=== PATIENT | male | born 1975 ===

== ENCOUNTER 2018-09-08 07:17 | Day surgery (SDC) | payer OTHER ==
--- NOTE | 2018-09-07 21:45 | Pre-Procedure Note/Attestation ---
Pre-Procedure Note/Attestation Complete Prior to Procedure Planned Procedure: not applicable Procedure Narrative: 1. Septoplasty 2. Submucous resection right inferior turbinate 3. Submucous resection left inferior turbinate 4. Repair nasal deformity Indications for Procedure Pre-Operative Diagnosis: 1. Nasal septal deviation 2. Hypertrophied right inferior turbinate 3. Hypertrophied left inferior turbinate. 4. Nasal deformity Attestation I attest that I discussed the nature of the procedure; its benefits; risks and complications; and alternatives (and the risks and benefits of such alternatives ), prior to the procedure, with the patient (or the patient's legal arborist representative). I attest that, if there was a reasonable possibility of needing a blood transfusion, the patient (or the patient's legal arborist representative) was given the [facility] standardized written summary, pursuant to the Dmitry Lookingglass Blood Safety Act ([place] Health and Safety Code # 1645, as amended). I attest that I re-evaluated the patient just prior to the surgery and that there has been no change in the patient's H&P. No need for labs, CXR or EKG in otherwise healthy 43 year old male. Jono Sanders MD Sep 07, 2018 21:45
--- NOTE | 2018-09-07 21:46 | Brief Operative Note ---
Immediate Post Operative Note Operative Note Chief Complaint: nasal airway obstruction Pre-op Diagnosis: 1. Nasal septal deviation 2. Hypertrophied right inferior turbinate 3. Hypertrophied left inferior turbinate. 4. Nasal deformity Procedure: 1. Septoplasty 2. Submucous resection right inferior turbinate 3. Submucous resection left inferior turbinate 4. Repair nasal deformity Post-op Diagnosis: same as pre-op Surgeon: Jono Sanders MD Oven Worker: none Additional Surgeons: none Anesthesiologist: Dr. Hull Anesthesia: general Specimen: none Complications: none Condition: stable Fluids: D5LR Estimated Blood Loss: volume - 75 cc Drains: none Packing: Stamberger nasal gel Implant(s) used?: No Jono Sanders MD Sep 07, 2018 21:46
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
--- NOTE | 2018-09-07 22:01 | Discharge Instructions ---
Discharge Instructions Discharge Instructions Follow up with: next week-pt has appt. already Diet: regular, renal (80g protein, 2GM) Resume Normal Activity?: No Activity: light activity Pneumonia Vaccine: pt refused vaccine Influenza Vaccine (Mar to Aug): pt refused vaccine Follow Up Orders Pt has printed post op instructions discussed with him at his pre op visit. He also has his post op medications already-[place] and Amox. Return to Work/School on: Sep 21, 2018 Special Instructions Ice to nose x 48 hours. For Surgical Patients Dressing Care: may change May shower: No For Congestive Heart Failure Reminder Report to your physician any weight gain of 5 pounds or more in one week. Jono Sanders MD Sep 07, 2018 22:01
[~2018-09-08] VITALS: Ht 175.3 cm; Wt 81.6 kg
[2018-09-08] VITALS (10 sets, daily range): BP systolic 118–143; BP diastolic 72–90
[2018-09-08] MEDS ORDERED: NKM (08:03)
[2018-09-08] MEDS ORDERED: fentaNYL 100 mcg/2 mL IV ONE (08:04)
[2018-09-08] MEDS ORDERED: Midazolam 2mg/2ml Inj ONE (08:04)
[2018-09-08] MEDS ORDERED: Lidocaine 1% MPF 10mg/ml 5ml ONE (08:07)
[2018-09-08] MEDS ORDERED: Propofol 200mg/20ml IV ONE ×2 (08:07→08:57)
[2018-09-08] MEDS ORDERED: Bupivacaine w/Epi 0.5% 30ml Vial INJ ONE (08:12)
[2018-09-08] MEDS ORDERED: Lidocaine 1% 10mg/ml/Epi 0.005mg/ml 30ml vial INJ ONE (08:12)
[2018-09-08] MEDS ORDERED: Cocaine HCl 4% 4ml vial TOPIC ONE (08:12)
[2018-09-08] MEDS ORDERED: NS Irrig 1000ml ONE (09:00)
[2018-09-08] MEDS ORDERED: LR 1000ml ONE (09:00)
[2018-09-08] MEDS ORDERED: Sterile Water Irrig 1000ml IRRIG ONE (09:00)
[2018-09-08] MEDS ORDERED: LR 1000ml 1,000 ML IVLG SCH (09:19)
--- NOTE | 2018-09-08 09:19 | Anethesia Preoperative Eval ---
Anesthesia Pre-op PMH/ROS General Date of Evaluation: Sep 08, 2018 Time of Evaluation: 08:50 Anesthesiologist: Pialr ASA Score: ASA 2 Mallampati Score Class I : Soft palate, uvula, fauces, pillars visible Class II: Soft palate, uvula, fauces visible Class III: Soft palate, base of uvula visible Class IV: Only hard plate visible Mallampati Classification: Class II Surgeon: Tommy Diagnosis: Nasal septum deviation Surgical Procedure: Septoplasty Anesthesia History: none Family History: no anesthesia problems Allergies: Coded Allergies: No Known Allergies (Unverified , 09/08/18) Medications: see eMAR Patient NPO?: Yes Past Medical History Cardiovascular: Denies: HTN, CAD, CT, valve dz, arrhythmia, other Pulmonary: Denies: asthma, COPD, [place], other Gastrointestinal/Genitourinary: Reports: GERD - mild; Denies: CRI, ESRD, other Neurologic/Psychiatric: Denies: dementia, CVA, depression/anxiety, TIA, other Endocrine: Denies: DM, hypothyroidism, steroids, other HEENT: Denies: cataract (L), cataract (R), glaucoma, [place] (L), [place] (R), other Hematology/Immune: Denies: anemia, DVT, bleeding disorder, other Musculoskeletal/Integumentary: Denies: OA, RA, DJD, DDD, edema, other Other: other - overweight PMH Narrative: as above PSxH Narrative: None Anesthesia Pre-op Phys. Exam Physician Exam Last Vital Signs Date Time Temp Pulse Resp B/P (MAP) Pulse Ox O2 Delivery O2 Flow Rate FiO2 09/08/18 08:10 Room Air 09/08/18 08:03 97.7 70 18 118/72 97 Constitutional: NAD Neurologic: CN 2-12 intact Cardiovascular: RRR, no M/R/G Respiratory: CTA Gastrointestinal: S/NT/ND Airway Exam Mallampati Score: Class II MO: full Neck: flexible ROM: full Teeth: intact Dentures: no upper, no lower Anesthesia Pre-op A/P Labs see chart Studies Pre-op Studies: EKG - NSR Risk Assessment & Plan Assessment: ASA 2 Plan: GA with LMA Status Change Before Surgery: No Pre-Antibiotics Drug: Ancef 1gr Given Within 1 Hr of Incision: Yes Time Given: 09:08 Mahendra Quezada MD Sep 08, 2018 09:19
[2018-09-08] MEDS ORDERED: DiphenhydrAMINE 50mg/ml Inj IVP PRN (09:30)
[2018-09-08] MEDS ORDERED: Metoclopramide 10mg/2ml Inj IVP PRN ×2 (09:30→10:30)
[2018-09-08] MEDS ORDERED: Meperidine 50mg/ml Inj(FOR RIGORS ONLY) IV PRN (09:30)
[2018-09-08] MEDS ORDERED: Ketorolac 30mg Inj ONE (09:50)
--- NOTE | 2018-09-08 10:15 | Immediate Post-Op Evaluation ---
Immediate Post-Op Evalulation Immediate Post-Op Evalulation Procedure: Septoplasty turbinate ablasion Date of Evaluation: Sep 08, 2018 Time of Evaluation: 10:14 IV Fluids: 800 Blood Products: none Estimated Blood Loss: 80 Urinary Output: none Blood Pressure Systolic: 143 Blood Pressure Diastolic: 84 Pulse Rate: 92 Respiratory Rate: 22 O2 Sat by Pulse Oximetry: 98 Temperature (Fahrenheit): 97.6 Pain Score (1-10): 2 Nausea: No Vomiting: No Complications none Patient Status: reacts, patent, none Hydration Status: adequate Mahendra Quezada MD Sep 08, 2018 10:15
[2018-09-08] MEDS ORDERED: HYDROcodone/Acetamin 5/325 tab ORAL PRN (10:30)
[2018-09-08] MEDS ORDERED: HYDROmorphone 1mg/ml Carpuject SUBQ PRN (10:30)
--- NOTE | 2018-09-08 11:08 | 48 Hour Post Anesthesia Eval ---
Post Anesthesia Evaluation Procedure: Septoplasty turbinate ablasion Date of Evaluation: Sep 08, 2018 Time of Evaluation: 11:07 Blood Pressure Systolic: 139 0: 76 Pulse Rate: 72 Respiratory Rate: 20 Temperature (Fahrenheit): 97.6 O2 Sat by Pulse Oximetry: 98 Airway: patent Nausea: No Vomiting: No Pain Intensity: 2 Hydration Status: adequate Cardiopulmonary Status: stable Mental Status/LOC: patient returned to baseline Follow-up Care/Observations: n/a Post-Anesthesia Complications: none Follow-up care needed: ready to discharge Mahendra Quezada MD Sep 08, 2018 11:08
--- NOTE | 2018-09-08 20:00 | Operative Note - Dictated ---
DATE OF OPERATION: 09/08/2018 SURGEON: Jono Sanders M.D. COST ACCOUNTING CLERK: None. ANESTHESIOLOGIST: Dr. Hull. ANESTHESIA: LMA general anesthesia as well as 4 mL of 4% topical cocaine on four nasal pledgets accounted for at the end of the case. A 20 mL of 1% lidocaine with 1:100,000 epinephrine and Marcaine 0.5% with 1:200,000 epinephrine injected within the nose. INDICATION FOR SURGERY: Nasal airway obstruction secondary to septal deviation to the left, hypertrophied right and left inferior turbinates and nasal deformity. PREOPERATIVE DIAGNOSIS: Nasal airway obstruction secondary to septal deviation to the left, hypertrophied right and left inferior turbinates and nasal deformity. POSTOPERATIVE DIAGNOSIS: Nasal airway obstruction secondary to septal deviation to the left, hypertrophied right and left inferior turbinates and nasal deformity. FINDINGS: Nasal airway obstruction secondary to septal deviation to the left, hypertrophied right and left inferior turbinates and nasal deformity. PROCEDURE: 1. Septoplasty. 2. Submucous resection, right inferior turbinate. 3. Submucous resection, left inferior turbinate. 4. Repair of nasal deformity. TECHNIQUE: The patient was prepped and draped in the usual manner. A time-out was performed and all agreed as to the procedure to be done as well as equipment required. Initially, incision made in the anterior inferior aspect of the right inferior turbinate with a 15-blade. I then passed a radiofrequency wand at a setting of 6, 10 seconds after coating with saline gel x2 in the inferior turbinate on the right and outfractured with a Boies elevator. I then proceeded to address the left inferior turbinate in the same manner. Stab incision with #15-blade. Radiofrequency wand, coated with saline gel setting of 6, 10 seconds x2. Outfractured with a Boies elevator. I then addressed the septum starting with the Jake incision on the left side coming over the spur of the vomer. I elevated this with a dental elevator on both sides of the cartilage and then removed the vomer on the left side with a gouge osteotome. I then was able to close the flaps together with a 4-0 plain suture x2. There appeared to be no perforations. I then proceeded to make between the cartilage incisions and stab incisions lower lateral nares with #15-blade. Elevated over the anterior nose with . I then proceeded to use a gouge osteotome over the anterior nose and a straight guarded osteotome and low lateral osteotome. I then with a Boies elevator, outfractured and made sure there was no greenstick fracture, which there was not. On the will right side, I had used an Lonny forceps. I placed a 4 x 4 forceps to complete the fracture. I then proceeded to remove some extra tissue, i.e. cartilage in the lower septal cartilage, not inferiorly. Finally I rasped the anterior nose after putting in position. Nose was cleaned and dried. Skin prep placed. Steri-Strips placed over the nose and then a small cast. Sponge and needle count correct according to all in the room. EBL: 75 mL. COMPLICATIONS: None. DRAINS: None. The patient was awaken stable in the recovery room, breathing on his own. Jono Sanders M.D. DR: Ary JOB#: [id number] CC:
== END 2018-09-08 12:00 | disposition home or self-care (01) ==
LOC: SUR 07:17
DX: J34.89 Other specified disorders of nose and nasal sinuses (principal); J34.2 Deviated nasal septum; J34.3 Hypertrophy of nasal turbinates; M95.0 Acquired deformity of nose; K21.9 Gastro-esophageal reflux disease without esophagitis; E66.3 Overweight; Z68.26 Body mass index [BMI] 26.0-26.9, adult
CPT/HCPCS: 30140; 30520; J0690; J1885; J2250; J2405; J2704; J3010; 94003; 94150